=== PATIENT | female | born 1985 | race Caucasian/White ===

== ENCOUNTER → 2016-11-19 | Outpatient (CLI) | payer OTHER ==
[~2016-11-19] MED LIST: IBUPROFEN800 MG PO; IRON18 MG PO; NAPROSYN500 MG PO; PRENATAL TABLE1 EAC3 PO; VITAMIN C1000 MG PO; ZYRTEC10 M3 PO
== END | disposition home or self-care (01) ==
LOC: RAD 14:36
PROC: BU18YZZ Fluoroscopy of Uterus and Fallopian Tubes using Other Contrast (ICD-10-PCS; principal; 2016-11-19)
PROC: 0UJ87ZZ Inspection of Fallopian Tube, Via Natural or Artificial Opening (ICD-10-PCS; 2016-11-19)
PROC: 0UJD7ZZ Inspection of Uterus and Cervix, Via Natural or Artificial Opening (ICD-10-PCS; 2016-11-19)
DX: Z31.41 Encounter for fertility testing (principal)
CPT/HCPCS: 74740

== ENCOUNTER 2017-05-22 10:48 | Outpatient (CLI) | payer OTHER ==
[2017-05-22 11:13] VITALS: BP 125/69
[2017-05-22 17:41] LABS: CANDIDA DNA PROBE NEGATIVE; GARDNERELLA DNA PROBE NEGATIVE; INTERNAL CONTROL VALID? YES
[2017-05-24 14:04] LABS: CHLAMYDIA TRACHOMATIS NEGATIVE; NEISSERIA GONORRHOEAE NEGATIVE
== END 2017-05-22 12:32 | disposition home or self-care (01) ==
LOC: LDRP-OP 10:48 → 2WEST 10:49
PROVIDERS: Advanced Practice Midwife; Obstetrics & Gynecology
DX: O26.892 Other specified pregnancy related conditions, second trimester (principal); N89.8 Other specified noninflammatory disorders of vagina; Z3A.27 27 weeks gestation of pregnancy
CPT/HCPCS: 59025; 87480; 87491; 87510; 87591; 87660; G0378

== ENCOUNTER 2017-05-25 23:57 | Inpatient (IN) | payer OTHER ==
[~2017-05-25] VITALS: Ht 152.4 cm; Wt 106.5 kg
[2017-05-26] VITALS (12 sets, daily range): BP systolic 102–132; BP diastolic 51–66
[2017-05-26 00:54] LABS: EOSINOPHIL (%) 1.5 % (0-5); EOSINOPHIL COUNT 0.1 K/uL (0-0.3); IMMATURE GRANULOCYTE (%) 0.9 % (0.0-0.7); IMMATURE GRANULOCYTE COUNT 0.1 K/uL; INSTRUMENT ABS NEUTROPHIL CT 6.6 K/uL; LYMPHOCYTE COUNT 2.2 K/uL (1.0-2.8); MCH 29.2 PG (29.0-34.0); MCHC 33.2 G/DL (30.0-36.0); MCV 87.9 FL (83-99); MEAN PLAT.VOLUME 10.6 uM^3 (9.5-12.4); MONOCYTE (%) 7.2 % (3-12); MONOCYTE COUNT 0.7 K/uL (0-0.8); NEUTROPHIL (%) 67.8 % (45-76); NEUTROPHIL COUNT 6.6 K/uL (1.8-6.4); PLATELET COUNT 233 K/uL (156-360); RBC DIS.WIDTH-CV 13.4 % (11.8-14.6); RBC DIS.WIDTH-SD 43.2 % (39-53); RED BLOOD COUNT 4.21 M/uL (3.80-5.20); WHITE BLOOD COUNT 9.7 K/uL (4.1-10.2)
[2017-05-26 03:29] LABS: AMPHETAMINES QUANT VALUE 0 NG/ML; BARBITUATES QUANT VALUE 0 NG/ML; BENZODIAZEPINES QUANT VALUE 0 NG/ML; BENZODIAZEPINES, URINE SCREEN Negative (200 ng/mL); MARIJUANA QUANT VALUE 0 NG/ML; OPIATES QUANTITATIVE VALUE 0 NG/ML; PHENCYCLIDINE QUANT VALUE 0 NG/ML
== END 2017-05-26 16:45 | disposition short-term general hospital (02) | DRG 775 ==
LOC: LDRP-OP 23:57 → 2WEST 23:58 → LDRP-OP 09-20 12:37
PROVIDERS: Obstetrics & Gynecology
DX: O42.912 Preterm premature rupture of membranes, unspecified as to length of time between rupture and onset of labor, second trimester (principal); Z3A.27 27 weeks gestation of pregnancy; Z37.0 Single live birth; Z68.42 Body mass index [BMI] 45.0-49.9, adult; O41.03X0 Oligohydramnios, third trimester, not applicable or unspecified; Z3A.00 Weeks of gestation of pregnancy not specified
CPT/HCPCS: 59025; 76805; 76816; 80306 90; 85025; 87081; 87086; G0378; J0290; J0702; J3475; J7050; J7120